=== PATIENT | female | born 1985 | race Caucasian/White ===

== ENCOUNTER 2019-08-24 03:43 | Emergency (ER) | payer BC ==
[~2019-08-24] VITALS: Ht 154.9 cm; Wt 54.4 kg
[2019-08-24] MEDS ORDERED: ZYRTEC10 M4 PO (03:53)
[2019-08-24 04:41] LABS: MCV 85.9 fL (80.0-100.0); NUCLEATED RBCS 0 /100WBC; RBC 4.19 mil/uL (4.20-5.00)
[2019-08-24 04:43] LABS: ABSOLUTE LYMPHOCYTES 1.2 thou/uL (0.8-5.3); BASOPHILS 0.4 %; HEMOGLOBIN 12.1 gm/dL (12.0-15.0); RDW-CV 13.6 % (10.5-14.5)
[2019-08-24 04:47] LABS: ABSOLUTE EOSINOPHILS 0.1 thou/uL (0.0-0.7); ABSOLUTE MONOCYTES 0.3 thou/uL (0.0-1.2); ABSOLUTE NEUTROPHILS 8.5 thou/uL (1.6-8.1); EOSINOPHILS 0.7 %; LYMPHOCYTES 11.8 %; MCH 28.9 pg (26.0-34.0); MCHC 33.6 g/dL (28.0-37.0); MONOCYTES 3.1 %; MPV 9.1 fl. (7.2-11.1); PLATELET COUNT* 263 thou/uL (150-400); WBC 10.1 thou/uL (4.0-11.0)
[2019-08-24 04:57] LABS: CALCIUM 8.6 mg/dL (8.5-10.1); CREATININE 0.7 mg/dL (0.6-1.3); POTASSIUM 3.2 mmol/L (3.5-5.1)
[2019-08-24] MEDS ORDERED: ZOFRAN ODT4 MG PO (05:25)
[2019-08-24] MEDS ORDERED: MOTION RELIEF25 MG PO (05:25)
[2019-08-24 05:46] VITALS: BP 99/64
== END 2019-08-24 05:47 | disposition home or self-care (01) ==
LOC: M.ERS 03:43
PROVIDERS: Emergency Medicine
DX: R42 Dizziness and giddiness (principal)